=== PATIENT | male | born 1940 | race Two or more races ===

== ENCOUNTER → 2022-08-24 | Emergency (ER) | payer OTHER ==
[~2022-08-24] VITALS: Ht 180.3 cm; Wt 68.0 kg
[~2022-08-24] MED LIST: ACETAMINOPHEN 325 MG TABLET ONE; ACETAMINOPHEN 325 MG TABLET PO ONE; HYDR-3972 PO; HYDROCODONE/APAP 5/325MG TABLET ONE; HYDROCODONE/APAP 5/325MG TABLET PO ONE
--- NOTE | 2022-08-24 22:50 | NUR ---
BIBRA 878 FOR BILAATERAL KNEE PAIN DOWN TO HIS ANKLES S/P MISSED THE BUNK BED. PT A/OX4. TOLERATING R/A WELL WITH NO RESP DISTRESS. SAFETY MEASURES IN PLACE.
--- NOTE | 2022-08-25 00:04 | NUR ---
HOME ADDRESS: [id number] [place] [phone]
--- NOTE | 2022-08-25 00:10 | NUR ---
LEFT KNEE IMOBILIZER APPLIED
--- NOTE | 2022-08-25 00:29 | NUR ---
[facility] AND JOVANNI SU[facility]
--- NOTE | 2022-08-25 00:52 | NUR ---
ADOLFO SUH ON THE PHONE WITH DR SOTO
--- NOTE | 2022-08-25 01:17 | NUR ---
[facility] SETTING UP TRANSPORTATION FOR D/C; WILL CALL BACK FOR ETA
--- NOTE | 2022-08-25 01:30 | NUR ---
[facility] TRANSPORTATION CANCELLED; PT DOES NOT HAVE KEYS TO HOUSE
--- NOTE | 2022-08-25 07:03 | NUR ---
PT SLEEPING IN BED, RESP EVEN AND NONLABORED. SAFETY MEASURES IN PLACE.
--- NOTE | 2022-08-25 09:21 | NUR ---
PAGED MARCELINA AT [phone] FOR CONSULT, NO RESPONSE. WILL PAGE AGAIN
--- NOTE | 2022-08-25 09:25 | NUR ---
HANNAH HENDRICKSON VM
--- NOTE | 2022-08-25 11:00 | NUR ---
SS consult: SS Consult requested for this 82 year old [place] male patient who is medically cleared to discharge home, however, he does not have the keys to his home. Pt. states he believes his was taken to [facility] yesterday. Per pt. his , Belia Paul has the keys to his home so he would like to get incontact with pt. to obtain the keys if has not discharge back home yet. CRISTY called [facility] who state that the Belia Paul was discharge home already. CRISTY notified pt. of this and he stated is pt. is home he will be able to get in his home. CRISTY notified [facility] to set up transport for pt. to return home. CRISTY discussed with [facility]ula [facility].
--- NOTE | 2022-08-25 13:02 | NUR ---
[facility] WILL CALL FOR TRANSPORT ETA, TRANSPORT WILL BE THROUGH THEM WELL
--- NOTE | 2022-08-25 13:20 | NUR ---
DR. SCHULER FROM [facility] CALLED WILL ARRANGE BLS AND CALL WITH ETA.
--- NOTE | 2022-08-25 13:40 | NUR ---
[facility] WILL TRANSPORT AT 1430 PER ROYMRAFAEL AT [facility].
[2022-08-25 14:39] VITALS: BP 122/66
--- NOTE | 2022-08-25 14:39 | NUR ---
Patient discharged to home in stable condition via ambulance. Written and verbal after care instructions given. Patient verbalizes understanding of instruction.
== END | disposition home or self-care (01) ==
LOC: ER 22:42
DX: S82.192A Other fracture of upper end of left tibia, initial encounter for closed fracture (principal); I10 Essential (primary) hypertension; I48.91 Unspecified atrial fibrillation; Z88.6 Allergy status to analgesic agent; Z79.899 Other long term (current) drug therapy; W01.0XXA Fall on same level from slipping, tripping and stumbling without subsequent striking against object, initial encounter; Y93.89 Activity, other specified; Y92.89 Other specified places as the place of occurrence of the external cause; Y99.8 Other external cause status
CPT/HCPCS: 73564-TC; 73590-TC

== ENCOUNTER 2022-08-25 16:58 | Emergency (ER) | payer OTHER ==
[~2022-08-25] VITALS: Ht 180.3 cm; Wt 68.0 kg
[~2022-08-25 16:58] MED LIST changes: -ACETAMINOPHEN 325 MG TABLET ONE; -ACETAMINOPHEN 325 MG TABLET PO ONE; -HYDROCODONE/APAP 5/325MG TABLET ONE; -HYDROCODONE/APAP 5/325MG TABLET PO ONE
--- NOTE | 2022-08-25 17:29 | NUR ---
CALLED [facility] [phone] WILL CALL US BACK.
--- NOTE | 2022-08-25 18:39 | NUR ---
DR. SCHULER WILL LOOK FOR A BED AT [facility] IN [place] .
[2022-08-25 18:56] LABS: CALCIUM, SERUM 8.7 mg/dL (8.5-10.1); CREATININE 1.3 mg/dL (0.6-1.3); POTASSIUM 3.6 mmol/L (3.5-5.1)
[2022-08-25 19:50] LABS: BASOPHILS % (AUTO) 0.2 % (0.0-2.0); EOSINOPHILS % (AUTO) 0.1 % (0.0-6.0); HEMATOCRIT 33 % (39-51); HEMOGLOBIN 11.1 g/dL (13.5-17.5); LYMPHOCYTES # (AUTO) 0.3 K/uL (0.8-4.8); LYMPHOCYTES % (AUTO) 2.4 % (20.0-44.0); MEAN CORPUSCULAR HGB CONC 34 g/dl (31.0-36.0); MEAN CORPUSCULAR VOLUME 90 fL (80-96); MONOCYTES # (AUTO) 0.7 K/uL (0.1-1.30); MONOCYTES % (AUTO) 5.6 % (2.0-12.0); NEUTROPHILS # (AUTO) 12.2 K/uL (1.8-8.9); NEUTROPHILS % (AUTO) 91.7 % (43.0-81.0); PLATELET COUNT (AUTO) 171 K/uL (150-450); RED BLOOD CELL COUNT(AUTO) 3.64 MIL/uL (4.5-6.0); WHITE BLOOD COUNT (AUTO) 13.3 K/uL (4.3-11.0)
--- NOTE | 2022-08-25 20:13 | NUR ---
COVID SWAB COLLECTED
[2022-08-25 22:16] VITALS: BP 141/89
--- NOTE | 2022-08-25 22:46 | NUR ---
accepting info [facility] [phone] dr oliver eta [phone] [facility]
--- NOTE | 2022-08-25 23:32 | NUR ---
report given to suhas griffith at [facility]
--- NOTE | 2022-08-25 23:54 | NUR ---
prn transport in facility to pc. report given, papers given. left in stable cond via gurney
== END 2022-08-26 | disposition short-term general hospital (02) ==
LOC: ER 17:02
DX: S82.102A Unspecified fracture of upper end of left tibia, initial encounter for closed fracture (principal); I10 Essential (primary) hypertension; I48.91 Unspecified atrial fibrillation; D72.829 Elevated white blood cell count, unspecified; E86.0 Dehydration; Z79.899 Other long term (current) drug therapy; Z20.822 Contact with and (suspected) exposure to COVID-19; Z88.6 Allergy status to analgesic agent; X58.XXXA Exposure to other specified factors, initial encounter; Y93.89 Activity, other specified; Y92.89 Other specified places as the place of occurrence of the external cause; Y99.8 Other external cause status
CPT/HCPCS: 99285; 87426; 85025; 80048; 36415; C9803

== ENCOUNTER 2024-01-04 08:59 | Emergency (ER) | payer OTHER ==
[~2024-01-04] VITALS: Ht 177.8 cm; Wt 68.9 kg
[2024-01-04 10:22] LABS: BASOPHILS % (AUTO) 0.3 % (0.0-2.0); EOSINOPHILS # (AUTO) 0.1 K/uL (0.0-0.7); EOSINOPHILS % (AUTO) 1.4 % (0.0-6.0); HEMATOCRIT 37 % (39-51); HEMOGLOBIN 12.2 g/dL (13.5-17.5); LYMPHOCYTES # (AUTO) 0.5 K/uL (0.8-4.8); LYMPHOCYTES % (AUTO) 8.9 % (20.0-44.0); MEAN CORPUSCULAR HEMOGLOBIN 29 PG (26.0-33.0); MEAN CORPUSCULAR HGB CONC 33 g/dl (31.0-36.0); MEAN CORPUSCULAR VOLUME 88 fL (80-96); MONOCYTES # (AUTO) 0.2 K/uL (0.1-1.30); MONOCYTES % (AUTO) 3.1 % (2.0-12.0); NEUTROPHILS # (AUTO) 4.9 K/uL (1.8-8.9); NEUTROPHILS % (AUTO) 86.3 % (43.0-81.0); PLATELET COUNT (AUTO) 182 K/uL (150-450); RED BLOOD CELL COUNT(AUTO) 4.18 MIL/uL (4.5-6.0); RED CELL DISTRIBUTION WIDTH 14.9 % (11.5-15.0); WHITE BLOOD COUNT (AUTO) 5.7 K/uL (4.3-11.0)
[2024-01-04 10:28] LABS: CALCIUM, SERUM 8.9 mg/dL (8.5-10.1); CARBON DIOXIDE 30 mmol/L (21-32); CHLORIDE 104 mmol/L (98-107); CREATININE 1.4 mg/dL (0.6-1.3); GLUCOSE 146 mg/dL (74-106); POTASSIUM 3.9 mmol/L (3.5-5.1); SODIUM SERUM 141 mmol/L (136-145); UREA NITROGEN, BLOOD 24 mg/dL (7-18)
[2024-01-04] MEDS ORDERED: IV NS 0.9% 250 ML IV ONE (10:53)
[2024-01-04] MEDS ORDERED: IOHEXOL-300 100 ML VIAL IV ONE (10:53)
[2024-01-04] MEDS ORDERED: CT SWABBABLE VALVE TRANS SET 1 EA INFUS.SET MC ONE (10:53)
[2024-01-04] MEDS ORDERED: DILTIAZEM HCL 50 MG IV ONE (11:49)
[2024-01-04] MEDS: DILTIAZEM HCL 25 MG IV IV ONE (11:56)
[2024-01-04 14:53] VITALS: BP 146/76; TEMP 98.1; O2SAT 96
== END 2024-01-04 14:54 | disposition short-term general hospital (02) ==
LOC: ER 09:01
DX: S72.091A Other fracture of head and neck of right femur, initial encounter for closed fracture (principal); M54.2 Cervicalgia; I10 Essential (primary) hypertension; I48.91 Unspecified atrial fibrillation; Z88.6 Allergy status to analgesic agent; Z20.822 Contact with and (suspected) exposure to COVID-19; W06.XXXA Fall from bed, initial encounter; Y93.89 Activity, other specified; Y92.89 Other specified places as the place of occurrence of the external cause; Y99.8 Other external cause status
CPT/HCPCS: 99285; 72125; 96374; 87426; 93005; 73630; 73502; 70450; 74177; 85025; 80048; 36415; 84484; J3490; J7050; Q9967

== ENCOUNTER 2024-12-16 21:02 | Inpatient (IN) | payer MEDICARE, OTHER ==
[~2024-12-16] VITALS: Ht 177.8 cm; Wt 61.7 kg
[2024-12-16] MEDS ORDERED: DILTIAZEM HCL 25 MG IV ONE (21:14)
[2024-12-16] MEDS ORDERED: AMIODARONE 150 MG/3 ML VIAL IV ONE ×3 (21:26→21:28)
[2024-12-16] MEDS ORDERED: DILTIAZEM HCL 50 MG IV IV ONE (21:30)
[2024-12-16] MEDS: AMIODARONE 150 MG in IV D5W 100 ML IV ONE (21:40)
[2024-12-16] MEDS: LORAZEPAM INJ 2 MG/ML VIAL IV ONE ×2 (21:50→22:32)
[2024-12-16] MEDS ORDERED: LORAZEPAM INJ 2 MG/ML VIAL ONE (21:51)
[2024-12-16 21:57] LABS: CALCIUM, SERUM 9.1 mg/dL (8.5-10.1); CREATININE 1.2 mg/dL (0.6-1.3); POTASSIUM 4.2 mmol/L (3.5-5.1)
[2024-12-16 21:58] LABS: BASOPHILS # (AUTO) 0.1 K/uL (0.0-0.2); BASOPHILS % (AUTO) 0.9 % (0.0-2.0); EOSINOPHILS % (AUTO) 0.7 % (0.0-6.0); HEMATOCRIT 32 % (39-51); HEMOGLOBIN 10.1 g/dL (13.5-17.5); LYMPHOCYTES % (AUTO) 14.9 % (20.0-44.0); MEAN CORPUSCULAR HEMOGLOBIN 27 PG (26.0-33.0); MEAN CORPUSCULAR HGB CONC 32 g/dl (31.0-36.0); MEAN CORPUSCULAR VOLUME 85 fL (80-96); MONOCYTES # (AUTO) 0.4 K/uL (0.1-1.30); MONOCYTES % (AUTO) 6.3 % (2.0-12.0); NEUTROPHILS # (AUTO) 5.3 K/uL (1.8-8.9); NEUTROPHILS % (AUTO) 77.2 % (43.0-81.0); PLATELET COUNT (AUTO) 437 K/uL (150-450); RED BLOOD CELL COUNT(AUTO) 3.72 MIL/uL (4.5-6.0); RED CELL DISTRIBUTION WIDTH 15.6 % (11.5-15.0); WHITE BLOOD COUNT (AUTO) 6.9 K/uL (4.3-11.0)
[2024-12-16] MEDS: AMIODARONE 150 MG/3 ML VIAL IV ONE (22:00)
[2024-12-16 22:17] LABS: ALBUMIN 2.7 g/dL (3.4-5.0); BILIRUBIN,TOTAL 0.7 mg/dL (0.2-1.0); MAGNESIUM 1.9 mg/dL (1.8-2.4); TOTAL PROTEIN, SERUM 7.4 g/dL (6.4-8.2)
[2024-12-17] VITALS (69 sets, daily range): BP systolic 98–130; BP diastolic 71–105; TEMP 97.9–99.5; O2SAT 91–100
[2024-12-17] MEDS ORDERED: ACETAMINOPHEN 325 MG TABLET PO PRN
[2024-12-17] MEDS ORDERED: ONDANSETRON HCL/PF 4 MG/2 ML VIAL IVP PRN
[2024-12-17] MEDS ORDERED: MAGNESIUM HYDROXIDE 30 ML UDC PO PRN
[2024-12-17] MEDS ORDERED: Z GUARD REMEDY 4 OZ OINT TP PRN
[2024-12-17] MEDS: FUROSEMIDE 40 MG/4 ML VIAL IV SCH ×3 (01:39→14:25)
[2024-12-17] MEDS: ENOXAPARIN SODIUM 40 MG/0.4 ML DISP.SYRIN SQ SCH (01:40)
[2024-12-17] MEDS: AMIODARONE 450 MG in IV D5W 241 ML IV PRN (02:29)
[2024-12-17] MEDS: AMIODARONE 150 MG/3 ML VIAL IV ONE (05:45)
[2024-12-17 05:54] LABS: BASOPHILS % (AUTO) 0.2 % (0.0-2.0); HEMATOCRIT 28 % (39-51); HEMOGLOBIN 9.1 g/dL (13.5-17.5); LYMPHOCYTES # (AUTO) 0.6 K/uL (0.8-4.8); LYMPHOCYTES % (AUTO) 6.3 % (20.0-44.0); MEAN CORPUSCULAR HEMOGLOBIN 28 PG (26.0-33.0); MEAN CORPUSCULAR HGB CONC 32 g/dl (31.0-36.0); MEAN CORPUSCULAR VOLUME 85 fL (80-96); MONOCYTES # (AUTO) 0.6 K/uL (0.1-1.30); MONOCYTES % (AUTO) 6.2 % (2.0-12.0); NEUTROPHILS # (AUTO) 8.9 K/uL (1.8-8.9); NEUTROPHILS % (AUTO) 87.3 % (43.0-81.0); PLATELET COUNT (AUTO) 324 K/uL (150-450); RED CELL DISTRIBUTION WIDTH 15.8 % (11.5-15.0); WHITE BLOOD COUNT (AUTO) 10.1 K/uL (4.3-11.0)
[2024-12-17 06:07] LABS: CALCIUM, SERUM 8.5 mg/dL (8.5-10.1); CREATININE 1.2 mg/dL (0.6-1.3); MAGNESIUM 2.1 mg/dL (1.8-2.4); PHOSPHORUS 3.9 mg/dL (2.5-4.9); POTASSIUM 3.9 mmol/L (3.5-5.1)
[2024-12-17 06:48] LABS: THYROID STIMULATING HORMONE 4.46 uIU/mL (0.358-3.74)
[2024-12-17] MEDS: PANTOPRAZOLE 40 MG TABLET.DR PO SCH (09:08)
[2024-12-17] MEDS ORDERED: DABIGATRAN ETEXILATE MESYLATE 150 MG CAPSULE PO SCH (09:30)
[2024-12-17] MEDS: POTASSIUM CHLORIDE 20 MEQ TAB.PRT.SR PO SCH (12:18)
[2024-12-17] MEDS: DABIGATRAN ETEXILATE MESYLATE 75 MG CAPSULE PO SCH (12:20)
[2024-12-17] MEDS ORDERED: SOD FERRIC GLUC 125 MG in IV NS 0.9% 100 ML IV SCH (14:00)
[2024-12-17] MEDS: IRON SUCROSE COMPLEX 200 MG in IV NS 0.9% 100 ML IV SCH (14:26)
[2024-12-18] VITALS (55 sets, daily range): BP systolic 79–121; BP diastolic 43–86; TEMP 98.4–99.7; O2SAT 93–100
[2024-12-18] MEDS ORDERED: ENOXAPARIN SODIUM 40 MG/0.4 ML DISP.SYRIN SQ SCH (01:00)
[2024-12-18 04:43] LABS: BASOPHILS # (AUTO) 0.1 K/uL (0.0-0.2); EOSINOPHILS % (AUTO) 0.5 % (0.0-6.0); HEMATOCRIT 29 % (39-51); HEMOGLOBIN 9.6 g/dL (13.5-17.5); LYMPHOCYTES # (AUTO) 0.8 K/uL (0.8-4.8); LYMPHOCYTES % (AUTO) 9.6 % (20.0-44.0); MEAN CORPUSCULAR HEMOGLOBIN 28 PG (26.0-33.0); MEAN CORPUSCULAR HGB CONC 33 g/dl (31.0-36.0); MEAN CORPUSCULAR VOLUME 85 fL (80-96); MONOCYTES # (AUTO) 0.6 K/uL (0.1-1.30); NEUTROPHILS # (AUTO) 6.5 K/uL (1.8-8.9); NEUTROPHILS % (AUTO) 80.9 % (43.0-81.0); PLATELET COUNT (AUTO) 321 K/uL (150-450); RED BLOOD CELL COUNT(AUTO) 3.47 MIL/uL (4.5-6.0); RED CELL DISTRIBUTION WIDTH 15.5 % (11.5-15.0)
[2024-12-18 04:51] LABS: ALANINE AMINOTRANSFERASE 18 U/L (12-78); ALBUMIN 2.4 g/dL (3.4-5.0); ALKALINE PHOSPHATASE 96 U/L (46-116); ASPARTATE AMINOTRANSFERASE 14 U/L (15-37); BILIRUBIN,TOTAL 0.6 mg/dL (0.2-1.0); CALCIUM, SERUM 8.5 mg/dL (8.5-10.1); CARBON DIOXIDE 32 mmol/L (21-32); CHLORIDE 96 mmol/L (98-107); CREATININE 1.3 mg/dL (0.6-1.3); GLUCOSE 145 mg/dL (74-106); MAGNESIUM 1.9 mg/dL (1.8-2.4); PHOSPHORUS 3.2 mg/dL (2.5-4.9); POTASSIUM 3.2 mmol/L (3.5-5.1); SODIUM SERUM 135 mmol/L (136-145); TOTAL PROTEIN, SERUM 6.6 g/dL (6.4-8.2); UREA NITROGEN, BLOOD 24 mg/dL (7-18)
[2024-12-18] MEDS: POTASSIUM CHLORIDE 20 MEQ TAB.PRT.SR PO ONE (08:00)
[2024-12-18] MEDS: POTASSIUM CL. PREMIX PERIPHER. 50 ML IV SCH (09:53)
[2024-12-18] MEDS ORDERED: MIDAZOLAM HCL 2 MG/2ML VIAL ONE (10:24)
[2024-12-18] MEDS ORDERED: LIDOCAINE 5% OINT 35.44 GM TUBE ONE (10:25)
[2024-12-18] MEDS ORDERED: ANESTHESIA TRAY IN PYXIS 1 EA TRAY MC ONE (10:28)
[2024-12-18] MEDS ORDERED: Potassium Chloride 10 MEQ, LIDOCAINE HCL/PF 1% 1 ML in IV NS 0.9% 50 ML IV SCH (10:30)
[2024-12-18] MEDS ORDERED: FENTANYL PF 100MCG/2ML AMPUL ONE (10:39)
[2024-12-18 11:22] LABS: INR 1.38 (0.91-1.10); PARTIAL THROMBOPLASTIN TIME 52.9 SEC (24.3-34.3); PROTHROMBIN TIME 14.3 SECS (9.2-11.1)
[2024-12-18] MEDS ORDERED: AMIODARONE 150 MG/3 ML VIAL IV ONE (11:32)
[2024-12-18] MEDS: METOPROLOL TARTRATE 25 MG TABLET PO SCH (12:30)
[2024-12-18] MEDS: POTASSIUM CHLORIDE 20 MEQ POWDER PACKET PO ONE (12:46)
[2024-12-18] MEDS: AMIODARONE 450 MG in IV D5W 241 ML IV PRN (13:01)
[2024-12-18] MEDS: SOD FERRIC GLUC 125 MG in IV NS 0.9% 100 ML IV SCH (14:24)
[2024-12-18 15:47] LABS: APPEARANCE,URINE CLEAR (CLEAR); BILIRUBIN,URINE NEGATIVE (NEGATIVE); BLOOD, URINE NEGATIVE Ery/uL (NEGATIVE); COLOR,URINE YELLOW (YELLOW); KETONES,URINE NEGATIVE (NEGATIVE); LEUKOCYTE ESTERASE ,URINE NEGATIVE (NEGATIVE); NITRITE, URINE NEGATIVE (NEGATIVE); PROTEIN,URINE NEGATIVE (NEGATIVE); UGLUCOSE NEGATIVE (NEGATIVE)
[2024-12-18 15:52] LABS: ADD URINE CULTURE NO; BACTERIA,URINE Rare /HPF (None Seen); MUCUS,URINE Moderate /LPF (None Seen); RBC,URINE 0-2 /HPF (0-2); SQUAMOUS EPITHELIAL CELL,UR Rare /HPF (None Seen); WBC,URINE 0-2 /HPF (0-3)
[2024-12-18] MEDS: IV NS 0.9% 250 ML IV ONE (16:09)
[2024-12-18] MEDS ORDERED: NOREPINEPHRINE 8 MG in IV D5W 242 ML IV PRN ×2 (19:30→20:00)
[2024-12-18] MEDS: LIDOCAINE VISCOUS 2% UD 15 ML UDC MM PRN (19:46)
[2024-12-18] MEDS: NOREPINEPHRINE 8 MG in IV D5W 242 ML IV PRN (21:06)
[2024-12-19] VITALS (53 sets, daily range): BP systolic 85–147; BP diastolic 42–78; TEMP 97.5–99.3; O2SAT 95–100
[2024-12-19 05:18] LABS: CALCIUM, SERUM 8.2 mg/dL (8.5-10.1); CREATININE 1.2 mg/dL (0.6-1.3); MAGNESIUM 1.9 mg/dL (1.8-2.4); PHOSPHORUS 2.6 mg/dL (2.5-4.9); POTASSIUM 3.8 mmol/L (3.5-5.1)
[2024-12-19 05:53] LABS: BASOPHILS % (AUTO) 0.3 % (0.0-2.0); EOSINOPHILS # (AUTO) 0.1 K/uL (0.0-0.7); EOSINOPHILS % (AUTO) 0.8 % (0.0-6.0); HEMATOCRIT 27 % (39-51); HEMOGLOBIN 8.9 g/dL (13.5-17.5); LYMPHOCYTES # (AUTO) 0.6 K/uL (0.8-4.8); LYMPHOCYTES % (AUTO) 6.8 % (20.0-44.0); MEAN CORPUSCULAR HEMOGLOBIN 28 PG (26.0-33.0); MEAN CORPUSCULAR HGB CONC 33 g/dl (31.0-36.0); MEAN CORPUSCULAR VOLUME 85 fL (80-96); MONOCYTES # (AUTO) 0.8 K/uL (0.1-1.30); MONOCYTES % (AUTO) 8.4 % (2.0-12.0); NEUTROPHILS # (AUTO) 7.9 K/uL (1.8-8.9); NEUTROPHILS % (AUTO) 83.7 % (43.0-81.0); PLATELET COUNT (AUTO) 332 K/uL (150-450); RED CELL DISTRIBUTION WIDTH 15.5 % (11.5-15.0); WHITE BLOOD COUNT (AUTO) 9.4 K/uL (4.3-11.0)
[2024-12-19] MEDS: AMIODARONE HCL 200 MG TABLET PO SCH (08:38)
[2024-12-20] VITALS (11 sets, daily range): BP systolic 94–120; BP diastolic 55–85; TEMP 97.3–99.7; O2SAT 96–100
[2024-12-20] MEDS: GUAIFENESIN LA 600 MG TABLET.SA PO SCH (08:22)
[2024-12-20] MEDS: SPIRONOLACTONE 25 MG TABLET PO SCH (08:22)
[2024-12-20 14:09] LABS: *SPE A/G RATIO 0.7 (0.7-1.7); *SPE ALBUMIN 2.4 g/dL (2.9-4.4); *SPE ALPHA-1-GLOBULIN 0.5 g/dL (0.0-0.4); *SPE ALPHA-2-GLOBULIN 0.9 g/dL (0.4-1.0); *SPE BETA GLOBULIN 0.8 g/dL (0.7-1.3); *SPE GLOBULIN, TOTAL 3.3 g/dL (2.2-3.9); *SPE M-SPIKE Not Observed g/dL (Not Observed); *SPE PROTEIN TOTAL 5.7 g/dL (6.0-8.5); *SPEGAMMA GLOBULIN 1.1 g/dL (0.4-1.8)
[2024-12-20 18:41] LABS: BASOPHILS % (AUTO) 0.5 % (0.0-2.0); EOSINOPHILS % (AUTO) 0.6 % (0.0-6.0); HEMATOCRIT 32 % (39-51); HEMOGLOBIN 10.1 g/dL (13.5-17.5); LYMPHOCYTES # (AUTO) 0.7 K/uL (0.8-4.8); LYMPHOCYTES % (AUTO) 7.7 % (20.0-44.0); MEAN CORPUSCULAR HEMOGLOBIN 28 PG (26.0-33.0); MEAN CORPUSCULAR HGB CONC 32 g/dl (31.0-36.0); MEAN CORPUSCULAR VOLUME 86 fL (80-96); MONOCYTES # (AUTO) 0.6 K/uL (0.1-1.30); MONOCYTES % (AUTO) 6.3 % (2.0-12.0); NEUTROPHILS # (AUTO) 7.6 K/uL (1.8-8.9); NEUTROPHILS % (AUTO) 84.9 % (43.0-81.0); PLATELET COUNT (AUTO) 360 K/uL (150-450); RED BLOOD CELL COUNT(AUTO) 3.65 MIL/uL (4.5-6.0); RED CELL DISTRIBUTION WIDTH 15.7 % (11.5-15.0); WHITE BLOOD COUNT (AUTO) 8.9 K/uL (4.3-11.0)
[2024-12-20 18:48] LABS: CALCIUM, SERUM 8.4 mg/dL (8.5-10.1); CREATININE 1.1 mg/dL (0.6-1.3)
[2024-12-21] VITALS: BP 109/66; TEMP 97.7; O2SAT 93
[2024-12-21 08:00] VITALS: BP 107/74; TEMP 97.7; O2SAT 98
[2024-12-21] MEDS: FUROSEMIDE 40 MG TABLET PO SCH (08:23)
[2024-12-21] MEDS ORDERED: LOSA25TA27 PO (08:45)
[2024-12-21] MEDS ORDERED: SPIR25TA6 PO (08:45)
[2024-12-21] MEDS ORDERED: DABI75CA3 PO (08:45)
[2024-12-21] MEDS ORDERED: AMIO200T7 PO (08:45)
[2024-12-21] MEDS ORDERED: FURO40TA5 PO (08:45)
[2024-12-21] MEDS ORDERED: DAPA10TA PO (08:45)
[2024-12-21] MEDS: METOPROLOL SUCCINATE 25 MG TAB.SR.24H PO SCH (09:00)
[2024-12-21] MEDS ORDERED: METO25TA4 PO (09:23)
[2024-12-21 12:00] VITALS: BP 114/73; TEMP 98.2; O2SAT 99
[2024-12-21 13:07] VITALS: BP 114/73
== END 2024-12-21 14:51 | DRG 291 ==
LOC: ER 21:03 → ICU 22:24 → TELE 12-19 18:18
PROVIDERS: ADMIT Nurse Practitioner Family; ATTEND Nurse Practitioner Acute Care
PROC: 5A09357 Assistance with Respiratory Ventilation, Less than 24 Consecutive Hours, Continuous Positive Airway Pressure (ICD-10-PCS; principal; 2024-12-16)
PROC: B246ZZ4 Ultrasonography of Right and Left Heart, Transesophageal (ICD-10-PCS; 2024-12-18)
PROC: 5A2204Z Restoration of Cardiac Rhythm, Single (ICD-10-PCS; 2024-12-18)
DX: I11.0 Hypertensive heart disease with heart failure (principal); I50.23 Acute on chronic systolic (congestive) heart failure; J96.01 Acute respiratory failure with hypoxia; E44.0 Moderate protein-calorie malnutrition; R64 Cachexia; Z68.1 Body mass index [BMI] 19.9 or less, adult; E78.5 Hyperlipidemia, unspecified; E88.09 Other disorders of plasma-protein metabolism, not elsewhere classified; I42.9 Cardiomyopathy, unspecified; M10.9 Gout, unspecified; Z87.891 Personal history of nicotine dependence; Z91.199 Patient's noncompliance with other medical treatment and regimen due to unspecified reason; L60.3 Nail dystrophy; L85.3 Xerosis cutis; I48.0 Paroxysmal atrial fibrillation; Z20.822 Contact with and (suspected) exposure to COVID-19; N40.0 Benign prostatic hyperplasia without lower urinary tract symptoms; L89.156 Pressure-induced deep tissue damage of sacral region; L89.326 Pressure-induced deep tissue damage of left buttock; D50.9 Iron deficiency anemia, unspecified
CPT/HCPCS: 36415; 71045-TC; 80048-TC; 80053-TC; 80061-TC; 81001; 82378; 82728-TC; 83540-TC; 83735-TC; 83880; 84100-TC; 84155; 84165; 84443-TC; 84484-TC; 85025-TC; 85610-TC; 85730-TC; 87040-TC; 87081-TC; 87086-TC; 92526; 92611-TC; 93307-TC; 93312-TC; 94799-TC; 97110-TC; 97116-TC; 97530-TC; 99082-TC; A4223; G0378; J0282; J1650; J1756; J1938; J2060; J2250; J2704; J2916; J3010; J3480; J3490; J7030; J7040; J7050; J7060